=== PATIENT | male | born 1960 | race Caucasian/White ===

== ENCOUNTER 2018-10-05 08:33 | Emergency (ER) | payer MEDICARE, MEDICAID ==
[~2018-10-05] VITALS: Ht 177.8 cm; Wt 77.1 kg
[2018-10-05 08:43] VITALS: BP 133/87
[2018-10-05 10:21] LABS: Basophils # (auto) 0.2 uL; Basophils % (auto) 0.7 % (0.0-2.0); Eosinophils # (auto) 0 uL; Hematocrit 46.4 % (41.0-53.0); Hemoglobin 15.1 g/dL (13.5-17.5); Lymphocytes # (auto) 0.5 uL; Lymphocytes % (auto) 2.4 % (10.0-50.0); Mean Corpuscular Hemoglobin 29.6 pg (28.0-32.0); Mean Corpuscular Hgb Conc. 32.6 g/dL (32.0-36.0); Monocytes # (auto) 1.4 uL; Monocytes % (auto) 6.6 % (0.0-12.0); Neutrophils # (auto) 19.7 uL; Neutrophils % (auto) 90.3 % (37.0-80.0); Platelet Count (auto) 333 10^3/uL (140-450); Red Blood Cells 5.09 10^6/uL (4.5-5.90); Red Cell Distribution Width 13.8 % (11.8-14.3); White Blood Cell 21.8 10^3/uL (4.4-10.8)
[2018-10-05 10:46] LABS: Alanine Aminotransferase 29 U/L (16-61); Albumin 3.2 g/dL (3.4-5.0); Anion Gap 21 (5-15); Aspartate Aminotransferase 20 U/L (15-37); BUN/Creatinine Ratio 18.5; Calcium 9.2 mg/dL (8.5-10.1); Carbon Dioxide 13 mmol/L (21-32); Chloride 101 mmol/L (98-107); GFR African American 10 mL/min; GFR Non-African American 8 mL/min; Glucose 153 mg/dL (74-106); Potassium 4.8 mmol/L (3.5-5.1); Sodium 135 mmol/L (136-145)
[2018-10-05 10:51] LABS: Alkaline Phosphatase 84 U/L (45-117); Bilirubin, Total 0.6 mg/dL (0.2-1.0); Total Protein 8.1 g/dL (6.4-8.2)
[2018-10-05 10:58] LABS: Blood Urea Nitrogen 138 mg/dL (7-18)
[2018-10-05] MEDS ORDERED: PIPERACILLIN-TAZOB 3.375GM 100 ML IV ONE (11:45)
== END 2018-10-05 14:41 | disposition left against medical advice (07) ==
LOC: EDBD 08:33 → ER 08:33
DX: A41.9 Sepsis, unspecified organism (principal); F17.210 Nicotine dependence, cigarettes, uncomplicated; F12.10 Cannabis abuse, uncomplicated; F15.10 Other stimulant abuse, uncomplicated
CPT/HCPCS: 36415; 71045; 80053; 83605; 83735; 84484; 85025; 87040

== ENCOUNTER 2018-10-05 20:19 | Emergency (ER) | payer MEDICARE, MEDICAID ==
[~2018-10-05] VITALS: Ht 170.2 cm; Wt 59.0 kg
[2018-10-05 20:42] VITALS: BP 133/70
[2018-10-05 23:25] LABS: Urine Bacteria FEW /hpf (None Seen); Urine Blood 1+ /uL (Negative); Urine Specific Gravity 1.012 (1.001-1.035); Urine WBC 13 /hpf (0 - 3)
== END 2018-10-06 00:14 | disposition left against medical advice (07) ==
LOC: ER 20:19
DX: R30.9 Painful micturition, unspecified (principal); Z53.21 Procedure and treatment not carried out due to patient leaving prior to being seen by health care provider
CPT/HCPCS: 74176; 81001

== ENCOUNTER 2018-10-06 08:28 | Inpatient (IN) | payer MEDICARE, MEDICAID ==
[~2018-10-06] VITALS: Ht 180.3 cm; Wt 95.1 kg
[2018-10-06] MEDS ORDERED: LORazepam 2MG/ML-1ML VIAL ONE (08:53)
[2018-10-06] MEDS ORDERED: MORPHINE SULFATE 4 MG/ML SYR/VIAL ONE (08:53)
[2018-10-06] MEDS ORDERED: MORPHINE SULFATE 4 MG/ML SYR/VIAL IV ONE (09:15)
[2018-10-06] MEDS ORDERED: LORazepam 2MG/ML-1ML VIAL IV ONE (09:15)
[2018-10-06 09:43] LABS: Urine Bacteria NONE SEEN /hpf (None Seen); Urine Blood 1+ /uL (Negative); Urine Specific Gravity 1.011 (1.001-1.035); Urine WBC 6 /hpf (0 - 3)
[2018-10-06 09:53] LABS: Basophils # (auto) 0.3 uL; Basophils % (auto) 1.7 % (0.0-2.0); Eosinophils # (auto) 0 uL; Eosinophils % (auto) 0.1 % (0.0-7.0); Hemoglobin 13.5 g/dL (13.5-17.5); Lymphocytes # (auto) 0.4 uL; Lymphocytes % (auto) 2.3 % (10.0-50.0); Mean Corpuscular Hemoglobin 29.8 pg (28.0-32.0); Mean Corpuscular Volume 90.3 fL (80.0-100.0); Monocytes # (auto) 1.3 uL; Neutrophils # (auto) 13.8 uL; Neutrophils % (auto) 87.9 % (37.0-80.0); Nucleated Red Blood Cells % 0.1 %; Platelet Count (auto) 306 10^3/uL (140-450); Red Blood Cells 4.54 10^6/uL (4.5-5.90); Red Cell Distribution Width 13.7 % (11.8-14.3); White Blood Cell 15.7 10^3/uL (4.4-10.8)
[2018-10-06 09:56] LABS: INR 1.02 (0.9-1.15); Prothrombin Time 10.9 sec (9.27-12.13)
[2018-10-06 09:59] LABS: Alanine Aminotransferase 33 U/L (16-61); Albumin 3.1 g/dL (3.4-5.0); Anion Gap 19 (5-15); Aspartate Aminotransferase 30 U/L (15-37); BUN/Creatinine Ratio 20.7; Calcium 9.2 mg/dL (8.5-10.1); Carbon Dioxide 12 mmol/L (21-32); Chloride 102 mmol/L (98-107); GFR African American 10 mL/min; GFR Non-African American 8 mL/min; Glucose 121 mg/dL (74-106); Potassium 4.3 mmol/L (3.5-5.1); Sodium 133 mmol/L (136-145)
[2018-10-06] MEDS ORDERED: SODIUM CHLORIDE 0.9% 1,000 ML IV SCH (09:59)
[2018-10-06] MEDS ORDERED: ACETAMINOPHEN 500 MG TAB PO PRN (10:00)
[2018-10-06] MEDS ORDERED: NITROGLYCERIN 0.4 MG SL TAB SL PRN (10:00)
[2018-10-06] MEDS ORDERED: MORPHINE SULF INJ 2 MG/ML SYRINGE 1ML IV PRN (10:00)
[2018-10-06 10:03] LABS: Alkaline Phosphatase 76 U/L (45-117); Bilirubin, Total 0.6 mg/dL (0.2-1.0); Total Protein 7.4 g/dL (6.4-8.2)
[2018-10-06 10:05] LABS: Blood Urea Nitrogen 147 mg/dL (7-18)
[2018-10-06] MEDS: DOCUSATE SOD 100 MG CAP PO SCH ×2 (10:22→21:23)
[2018-10-06] MEDS ORDERED: cefTRIAXone 1GM/50ML D5W 50 ML IV ONE (10:30)
[2018-10-06 10:43] LABS: Alcohol, Urine < 3.0 mg/dL (0-5); Amphetamine Screen, Urine POSITIVE (NEGATIVE); Barbiturate Scree,Urine NEGATIVE (NEGATIVE); Benzodiazephine Screen, Urine NEGATIVE (NEGATIVE); Cannabinoid Screen, Urine NEGATIVE (NEGATIVE); Opiate Scree,Urine NEGATIVE (NEGATIVE); Phencyclidine Screen, Urine NEGATIVE (NEGATIVE)
[2018-10-06 10:48] LABS: Sodium Urine 38 mmol/L (40-220)
[2018-10-06 10:51] LABS: Cocaine Screen, Urine NEGATIVE (NEGATIVE)
[2018-10-06 10:53] LABS: Creatinine, Urine 91 mg/dL (30.0-125.0)
[2018-10-06] MEDS ORDERED: SODIUM BICARBONATE 8.4 % INJ 50ML VIAL IV ONE (11:30)
[2018-10-06] MEDS: PANTOPRAZOLE 40 MG/10 ML VIAL IV SCH (13:05)
[2018-10-06] MEDS: SODIUM BICARBONATE 50ML VIAL 50 ML in D5W/SOD CHL 0.45% 1,000 ML IV SCH ×3 (13:05→21:02)
[2018-10-06] MEDS: MULTIPLE VITAMIN 10 ML, MAGNESIUM SULF SDV 50% 8 MEQ in D5W/SOD CHL 0.45% 1,000 ML IV SCH (15:25)
[2018-10-06 17:47] VITALS: BP 138/66
[2018-10-06] MEDS: TAMSULOSIN HYDROCHLORIDE 0.4 MG CAP PO SCH (18:00)
[2018-10-06 21:30] VITALS: BP 133/78
[2018-10-06] MEDS: MORPHINE SULF INJ 2 MG/ML SYRINGE 1ML IV PRN (22:34)
[2018-10-06] MEDS: ONDANSETRON HCL 4 MG/2 ML VIAL IV PRN (22:34)
--- NOTE | 2018-10-06 22:35 | NUR ---
PATIENT COMPLAINT OF ABDOMINAL PAIN, MEDICATED WITH MORPHINE AND ZOFRAN PER MD ORDER. TOLERATED WELL. CONTINUE PATIENT CARE. KEPT BED ALARM ON.
[2018-10-07 04:30] VITALS: BP 117/51
--- NOTE | 2018-10-07 04:31 | NUR ---
RESTING ON BED AT THIS TIME WITH NO RESPIRATORY DISTRESS NOTED. KEPT BED ALARM ON.
[2018-10-07 05:54] LABS: Basophils # (auto) 0.1 uL; Basophils % (auto) 1.3 % (0.0-2.0); Eosinophils # (auto) 0 uL; Eosinophils % (auto) 0.3 % (0.0-7.0); Hematocrit 37.9 % (41.0-53.0); Lymphocytes # (auto) 0.4 uL; Mean Corpuscular Hemoglobin 30.7 pg (28.0-32.0); Mean Corpuscular Hgb Conc. 34.4 g/dL (32.0-36.0); Mean Corpuscular Volume 89.4 fL (80.0-100.0); Monocytes # (auto) 1.2 uL; Monocytes % (auto) 15.2 % (0.0-12.0); Neutrophils # (auto) 6.1 uL; Neutrophils % (auto) 78.2 % (37.0-80.0); Nucleated Red Blood Cells % 0.1 %; Platelet Count (auto) 260 10^3/uL (140-450); Red Blood Cells 4.24 10^6/uL (4.5-5.90); Red Cell Distribution Width 13.4 % (11.8-14.3); White Blood Cell 7.7 10^3/uL (4.4-10.8)
[2018-10-07 06:11] LABS: Calcium 8.5 mg/dL (8.5-10.1)
[2018-10-07 06:14] LABS: BUN/Creatinine Ratio 29.5
[2018-10-07] MEDS: ONDANSETRON HCL 4 MG/2 ML VIAL IV PRN (06:47)
[2018-10-07] MEDS: MORPHINE SULF INJ 2 MG/ML SYRINGE 1ML IV PRN ×2 (06:47→13:40)
[2018-10-07] MEDS: SODIUM BICARBONATE 50ML VIAL 50 ML in D5W/SOD CHL 0.45% 1,000 ML IV SCH (06:57)
[2018-10-07 08:00] VITALS: BP 112/66
[2018-10-07] MEDS ORDERED: SOD CHL 0.45% 1,000 ML IV SCH ×2 (08:45→22:00)
[2018-10-07] MEDS: HYDROcodone-ACET 5/325MG TAB PO PRN (08:56)
[2018-10-07] MEDS ORDERED: D5W 5% 1,000 ML IV SCH (10:30)
[2018-10-07] MEDS: cefTRIAXone 1GM/50ML D5W 50 ML IV SCH (10:44)
[2018-10-07] MEDS: PANTOPRAZOLE 40 MG/10 ML VIAL IV SCH (10:45)
[2018-10-07] MEDS: DOCUSATE SOD 100 MG CAP PO SCH ×2 (10:45→21:22)
[2018-10-07 12:55] VITALS: BP 115/68
--- NOTE | 2018-10-07 13:40 | NUR ---
PATIENT ASKED FOR PAIN MEDICATION. I INFORMED HIM THAT THE NORCO WAS NOT DUE BUT I COULD GIVE HIM MORPHINE HE SAID "I'M GOING TO SOCK YOU JUST GIVE ME THE MORPHINE". I MEDICATED HIM WITH MORPHINE ORDERED. I INFORMED PRIYANKA THE CHARGE NURSE THAT PATIENT IS HAVING AGGRESSIVE BEHAVIOR TOWARDS ME.
[2018-10-07] MEDS: ENSURE CLEAR Mixed Berry 8oz Carton PO SCH ×2 (13:46→18:04)
[2018-10-07] MEDS: MULTIPLE VITAMIN 10 ML, MAGNESIUM SULF SDV 50% 8 MEQ in D5W/SOD CHL 0.45% 1,000 ML IV SCH (14:59)
[2018-10-07 16:02] LABS: BUN/Creatinine Ratio 23.1; Calcium 7.4 mg/dL (8.5-10.1); Potassium 3.3 mmol/L (3.5-5.1)
[2018-10-07 16:29] VITALS: BP 100/62
[2018-10-07] MEDS: TAMSULOSIN HYDROCHLORIDE 0.4 MG CAP PO SCH (19:20)
--- NOTE | 2018-10-07 19:30 | NUR ---
Opening Shift Note Assumed care of patient, awake and alert. No S/S of distress/SOB. Instructed on POC and to call for assist PRN, will continue to monitor for changes Q1hr and PRN.
[2018-10-07 22:00] VITALS: BP 116/65
[2018-10-08] MEDS: POTASSIUM CHL 20MEQ/100ML 100 ML IV SCH ×2 (01:41)
[2018-10-08] MEDS ORDERED: POTASSIUM CHL 20MEQ/100ML 100 ML IV ONE (04:11)
[2018-10-08 05:00] VITALS: BP 111/56
[2018-10-08] MEDS: HYDROcodone-ACET 5/325MG TAB PO PRN (05:14)
[2018-10-08] MEDS: ENSURE CLEAR Mixed Berry 8oz Carton PO SCH ×3 (07:31→17:31)
[2018-10-08 08:00] VITALS: BP 112/69
[2018-10-08] MEDS: MORPHINE SULF INJ 2 MG/ML SYRINGE 1ML IV PRN (08:41)
[2018-10-08] MEDS ORDERED: LORazepam 2MG/ML-1ML VIAL IV PRN (09:30)
[2018-10-08] MEDS: PANTOPRAZOLE 40 MG/10 ML VIAL IV SCH (09:36)
[2018-10-08] MEDS: cefTRIAXone 1GM/50ML D5W 50 ML IV SCH (09:36)
[2018-10-08] MEDS: DOCUSATE SOD 100 MG CAP PO SCH ×2 (09:36→21:47)
--- NOTE | 2018-10-08 11:29 | NUR ---
CONTINUES TO REFUSE BLOOD DRAWS. WILL NOTIFY NICK
--- NOTE | 2018-10-08 12:32 | NUR ---
REFUSED MIDLINE. EDUCATED ON THE IMPORTANCE OF BETTER IV ACCESS CONTINUES TO REFUSE. I OFFERED ATIVAN TO RELAX PATIENT BEFORE MIDLINE PLACEMENT NOLAN CONTINUES TO REFUSE
--- NOTE | 2018-10-08 12:34 | NUR ---
PATIENT REFUSED MIDLINE AND PICC LINE QUE SYED VERBALLY TOLD.
[2018-10-08 13:26] VITALS: BP 109/68
[2018-10-08] MEDS: MULTIPLE VITAMIN 10 ML, MAGNESIUM SULF SDV 50% 8 MEQ in D5W/SOD CHL 0.45% 1,000 ML IV SCH (15:57)
[2018-10-08 17:25] VITALS: BP 111/63
[2018-10-08] MEDS: TAMSULOSIN HYDROCHLORIDE 0.4 MG CAP PO SCH (17:35)
--- NOTE | 2018-10-08 19:30 | NUR ---
Continuation of Care Assumed care of patient, eyes closed, respirations even and unlabored, appears asleep. Patient awakens to name and touch. No S/S of distress/SOB or pain. Bed in lowest locked position, side rails up x2, call light within reach, bed alarm on. Instructed on POC and to call for assist PRN, will continue to monitor for changes Q1hr and PRN. Addendum: 10/09/18 at 0042 by SONDRA PARR RN RN CORRECTION: Time of note should be 21:30, not 19:30. All other details correct.
--- NOTE | 2018-10-08 19:30 | NUR ---
Opening Shift Note Assumed care of patient, awake and alert. No S/S of distress/SOB or pain. Instructed on POC and to call for assist PRN, will continue to monitor for changes Q1hr and PRN.
--- NOTE | 2018-10-08 19:50 | NUR ---
Attempted to educate patient regarding Midline and labs, but patient refused and stated that he prefers to just leave. Patient states he has a fear of needles.
--- NOTE | 2018-10-08 21:10 | NUR ---
Patient complaining of severe constipation. Patient assisted onto commode and patient able to have a large BM. Patient able to stand with only standby assistance.
[2018-10-08] MEDS ORDERED: MVI IN SODIUM CHLORIDE 0.9% ONE (21:15)
--- NOTE | 2018-10-08 21:29 | NUR ---
Endorsed patient to Page RN. Patient resting on bed and no distress noted.
[2018-10-08 22:00] VITALS: BP 122/69
[2018-10-09 05:00] VITALS: BP 120/73
--- NOTE | 2018-10-09 07:05 | NUR ---
AMA Note NELY MOTA states they want to leave the hospital Against Medical Advice (AMA). Patient encouraged to stay for further treatment/stabilization. Morena Person NP notified of patient's wishes. Patient advised of the risks and benefits of leaving AMA. Patient verbalized understanding. Patient encouraged to return to the ER if symptoms do not improve or worsen. Patient approached by lab staff for morning lab draw, patient refused. This RN spoke with patient and educated him on importance of lab draws, patient verbalized understanding and refused stating, "I want my clothes and I want to leave." RN informed patient that she would need to inform charge nurse of patient's request and that she would need to locate the paperwork. Patient verbalized understanding. While printing paperwork and contacting charge nurse Kandis GREY, patient became more agitated stating he would "punch [this RN] in [my] fucking face," and "[this RN] could burn in fucking hell". Left EJ removed, pressure held to site and Tegaderm and gauze applied. Patient instructed to leave on and monitor site for bleeding, patient verbalized understanding. Koenig catheter removed with 300 ml of clear yellow urine. Patient grimacing in pain after 10 ml balloon deflated and Koenig removed, but no other s/s of distress noted. All belongings returned. Patient ambulated off of unit, leaving AMA, escorted by security. Morena Person NP notified at 07:25 am.
== END 2018-10-09 07:05 | disposition left against medical advice (07) | DRG 871 ==
LOC: ER 08:28 → TELE 09:59 → TELE-CENTR 18:22 → CENTRAL 10-08 10:21
PROVIDERS: ADMIT Nurse Practitioner Acute Care; ATTEND Nurse Practitioner Acute Care
DX: A41.9 Sepsis, unspecified organism (principal); N17.0 Acute kidney failure with tubular necrosis; E87.1 Hypo-osmolality and hyponatremia; E87.0 Hyperosmolality and hypernatremia; E87.2 Acidosis; J98.11 Atelectasis; N13.6 Pyonephrosis; E44.0 Moderate protein-calorie malnutrition; E87.6 Hypokalemia; F15.10 Other stimulant abuse, uncomplicated; N40.1 Benign prostatic hyperplasia with lower urinary tract symptoms; R33.9 Retention of urine, unspecified; F17.210 Nicotine dependence, cigarettes, uncomplicated; F41.9 Anxiety disorder, unspecified; Z53.21 Procedure and treatment not carried out due to patient leaving prior to being seen by health care provider; K57.30 Diverticulosis of large intestine without perforation or abscess without bleeding; M81.0 Age-related osteoporosis without current pathological fracture; Z68.29 Body mass index [BMI] 29.0-29.9, adult; Z59.0 Homelessness; Z90.79 Acquired absence of other genital organ(s); Z79.899 Other long term (current) drug therapy; Z72.89 Other problems related to lifestyle
CPT/HCPCS: 36415; 71045; 74176; 76775; 80048; 80053; 80307; 81001; 82570; 83605; 83735; 83880; 84154; 84300; 84484; 85025; 85610; 85730; 87040; 87086; 93306; 96365; 96375; A6257; C9113; G0378; J0696; J2405; J3480

== ENCOUNTER 2018-10-12 01:57 | Emergency (ER) | payer MEDICARE, MEDICAID ==
[~2018-10-12] VITALS: Ht 180.3 cm; Wt 62.6 kg
[2018-10-12 02:07] VITALS: BP 166/91
== END 2018-10-12 06:04 | disposition left against medical advice (07) ==
LOC: EDBD 01:57 → ER 02:02
DX: R10.9 Unspecified abdominal pain (principal); Z53.21 Procedure and treatment not carried out due to patient leaving prior to being seen by health care provider

== ENCOUNTER 2018-10-14 22:19 | Emergency (ER) | payer MEDICARE, MEDICAID ==
[~2018-10-14] VITALS: Ht 180.3 cm; Wt 63.5 kg
[2018-10-14 22:32] VITALS: BP 124/91
== END 2018-10-15 02:10 | disposition left against medical advice (07) ==
LOC: ER 22:19
DX: R10.9 Unspecified abdominal pain (principal); Z53.21 Procedure and treatment not carried out due to patient leaving prior to being seen by health care provider

== ENCOUNTER 2018-10-15 02:32 | Emergency (ER) | payer MEDICARE, MEDICAID ==
[~2018-10-15] VITALS: Ht 160 cm; Wt 83.9 kg
[2018-10-15 07:38] LABS: Basophils # (auto) 0.1 uL; Basophils % (auto) 0.6 % (0.0-2.0); Eosinophils # (auto) 0.1 uL; Eosinophils % (auto) 1.2 % (0.0-7.0); Hematocrit 34.5 % (41.0-53.0); Hemoglobin 11.5 g/dL (13.5-17.5); Lymphocytes # (auto) 0.8 uL; Lymphocytes % (auto) 7.2 % (10.0-50.0); Mean Corpuscular Hemoglobin 30.1 pg (28.0-32.0); Mean Corpuscular Hgb Conc. 33.3 g/dL (32.0-36.0); Mean Corpuscular Volume 90.3 fL (80.0-100.0); Monocytes # (auto) 1.2 uL; Monocytes % (auto) 10.5 % (0.0-12.0); Neutrophils # (auto) 9.3 uL; Neutrophils % (auto) 80.5 % (37.0-80.0); Nucleated Red Blood Cells % 0.1 %; Platelet Count (auto) 337 10^3/uL (140-450); Red Blood Cells 3.82 10^6/uL (4.5-5.90); Red Cell Distribution Width 13.6 % (11.8-14.3); White Blood Cell 11.6 10^3/uL (4.4-10.8)
[2018-10-15 07:53] LABS: Albumin 2.8 g/dL (3.4-5.0); Calcium 8.9 mg/dL (8.5-10.1); Potassium 3.4 mmol/L (3.5-5.1)
[2018-10-15 07:56] LABS: BUN/Creatinine Ratio 14.6
[2018-10-15 07:59] LABS: Bilirubin, Total 0.6 mg/dL (0.2-1.0); Total Protein 6.9 g/dL (6.4-8.2)
[2018-10-15 08:10] VITALS: BP 117/69
== END 2018-10-15 08:47 | disposition home or self-care (01) ==
LOC: EDBD 02:32 → ER 02:32
DX: R10.84 Generalized abdominal pain (principal); G89.29 Other chronic pain; F17.210 Nicotine dependence, cigarettes, uncomplicated; F12.90 Cannabis use, unspecified, uncomplicated; F15.90 Other stimulant use, unspecified, uncomplicated; Z59.0 Homelessness
CPT/HCPCS: 36415; 80053; 82150; 83690; 85025; 93005

== ENCOUNTER 2018-10-19 14:44 | Emergency (ER) | payer MEDICARE, MEDICAID ==
[~2018-10-19] VITALS: Ht 180.3 cm; Wt 63.5 kg
[2018-10-19 15:02] VITALS: BP 103/44
[2018-10-19 18:06] LABS: Urine Bacteria NONE SEEN /hpf (None Seen); Urine Blood 2+ /uL (Negative); Urine Mucus FEW (None Seen); Urine WBC 8 /hpf (0 - 3)
== END 2018-10-20 01:39 | disposition left against medical advice (07) ==
LOC: ER 14:44 → EDBD 14:44 → ER 10-20 01:39
DX: N48.89 Other specified disorders of penis (principal); Z53.21 Procedure and treatment not carried out due to patient leaving prior to being seen by health care provider
CPT/HCPCS: 81001

== ENCOUNTER 2018-10-20 07:25 | Emergency (ER) | payer MEDICARE, MEDICAID ==
[~2018-10-20] VITALS: Ht 180.3 cm; Wt 63.5 kg
[2018-10-20] MEDS ORDERED: methylPREDNISolone SOD SUCC 125 MG/2 ML VL ONE (08:01)
[2018-10-20 08:55] VITALS: BP 136/83
== END 2018-10-20 08:55 | disposition home or self-care (01) ==
LOC: ER 07:25
DX: R10.30 Lower abdominal pain, unspecified (principal); Z46.6 Encounter for fitting and adjustment of urinary device; F17.210 Nicotine dependence, cigarettes, uncomplicated; F12.10 Cannabis abuse, uncomplicated; F15.10 Other stimulant abuse, uncomplicated; Z59.0 Homelessness
CPT/HCPCS: 81001; 93005; 99284; J2930

== ENCOUNTER 2018-10-21 19:30 | Emergency (ER) | payer MEDICARE, MEDICAID ==
[~2018-10-21] VITALS: Ht 180.3 cm; Wt 63.5 kg
[2018-10-21 19:50] VITALS: BP 118/77
[2018-10-21] MEDS ORDERED: cefTRIAXone SOD 1,000 MG VL IM ONE (21:00)
[2018-10-21] MEDS ORDERED: PHENAZOPYRIDINE HCL 100 MG TAB PO ONE (21:00)
[2018-10-21] MEDS ORDERED: HYDROcodone-ACET 10/325MG TAB PO ONE (22:30)
== END 2018-10-21 22:27 | disposition home or self-care (01) ==
LOC: ER 19:33
DX: T83.9XXA Unspecified complication of genitourinary prosthetic device, implant and graft, initial encounter (principal); F17.210 Nicotine dependence, cigarettes, uncomplicated; F12.10 Cannabis abuse, uncomplicated; F15.10 Other stimulant abuse, uncomplicated; Z59.0 Homelessness; Y92.89 Other specified places as the place of occurrence of the external cause
CPT/HCPCS: 51702; 96372; 99284; J0696

== ENCOUNTER 2018-11-01 15:47 | Emergency (ER) | payer MEDICARE, MEDICAID ==
[~2018-11-01] VITALS: Ht 180.3 cm; Wt 63.5 kg
[2018-11-01 16:41] VITALS: BP 112/71
== END 2018-11-01 17:11 | disposition home or self-care (01) ==
LOC: ER 15:47
DX: Z46.6 Encounter for fitting and adjustment of urinary device (principal); F17.210 Nicotine dependence, cigarettes, uncomplicated; F12.90 Cannabis use, unspecified, uncomplicated; F15.90 Other stimulant use, unspecified, uncomplicated; Z86.73 Personal history of transient ischemic attack (TIA), and cerebral infarction without residual deficits; Z59.0 Homelessness

== ENCOUNTER 2018-11-19 14:17 | Emergency (ER) | payer MEDICARE, MEDICAID ==
[~2018-11-19] VITALS: Ht 175.3 cm; Wt 61.2 kg
[2018-11-19 14:24] VITALS: BP 160/100
== END 2018-11-19 19:24 | disposition left against medical advice (07) ==
LOC: EDBD 14:17 → ER 14:22
DX: R10.30 Lower abdominal pain, unspecified (principal); Z53.21 Procedure and treatment not carried out due to patient leaving prior to being seen by health care provider

== ENCOUNTER 2018-11-19 22:15 | Emergency (ER) | payer MEDICARE, MEDICAID ==
[~2018-11-19] VITALS: Ht 177.8 cm; Wt 63.5 kg
[2018-11-19 22:50] VITALS: BP 156/64
[2018-11-19 23:18] LABS: Basophils # (auto) 0.1 uL; Basophils % (auto) 0.4 % (0.0-2.0); Eosinophils # (auto) 0 uL; Hemoglobin 14.5 g/dL (13.5-17.5); Lymphocytes # (auto) 0.3 uL; Lymphocytes % (auto) 1.3 % (10.0-50.0); Mean Corpuscular Hemoglobin 30.3 pg (28.0-32.0); Mean Corpuscular Hgb Conc. 33.1 g/dL (32.0-36.0); Mean Corpuscular Volume 91.5 fL (80.0-100.0); Monocytes # (auto) 1.3 uL; Monocytes % (auto) 6.8 % (0.0-12.0); Neutrophils # (auto) 17.7 uL; Neutrophils % (auto) 91.5 % (37.0-80.0); Platelet Count (auto) 194 10^3/uL (140-450); Red Blood Cells 4.81 10^6/uL (4.5-5.90); Red Cell Distribution Width 14.2 % (11.8-14.3); White Blood Cell 19.3 10^3/uL (4.4-10.8)
[2018-11-19 23:41] LABS: Albumin 3.7 g/dL (3.4-5.0); BUN/Creatinine Ratio 14.8; Calcium 9.7 mg/dL (8.5-10.1); Potassium 4.4 mmol/L (3.5-5.1)
[2018-11-19 23:44] LABS: Bilirubin, Total 0.8 mg/dL (0.2-1.0)
[2018-11-20] MEDS ORDERED: cefTRIAXone SOD 1,000 MG VL IM ONE (06:00)
== END 2018-11-20 05:05 | disposition home or self-care (01) ==
LOC: EDBD 22:15 → ER 22:19
DX: N39.0 Urinary tract infection, site not specified (principal); F19.10 Other psychoactive substance abuse, uncomplicated; F17.210 Nicotine dependence, cigarettes, uncomplicated; Z86.73 Personal history of transient ischemic attack (TIA), and cerebral infarction without residual deficits
CPT/HCPCS: 36415; 80053; 85025

== ENCOUNTER 2018-11-20 17:16 | Inpatient (IN) | payer MEDICARE, MEDICAID | END 2018-11-24 17:00 | LOC: OVERFLOW 11-21 07:33 → WEST WING 11-21 12:56 → ER 17:16 | DX: A41.9 Sepsis, unspecified organism (principal); N17.0 Acute kidney failure with tubular necrosis; N13.6 Pyonephrosis; N18.9 Chronic kidney disease, unspecified; E87.5 Hyperkalemia ==

== ENCOUNTER 2019-02-14 10:50 | Emergency (ER) | payer MEDICARE, MEDICAID ==
[~2019-02-14] VITALS: Ht 172.7 cm; Wt 54.4 kg
[2019-02-14 11:14] VITALS: BP 166/60
== END 2019-02-14 14:32 | disposition left against medical advice (07) ==
LOC: EDBD 10:50 → ER 11:01
DX: R33.8 Other retention of urine (principal); Z53.21 Procedure and treatment not carried out due to patient leaving prior to being seen by health care provider

== ENCOUNTER 2021-11-28 13:38 | Emergency (ER) | payer MEDICARE, MEDICAID ==
[~2021-11-28] VITALS: Ht 180.3 cm; Wt 59.0 kg
[2021-11-28] MEDS ORDERED: levETIRAcetam 500 MG TAB PO ONE (14:30)
[2021-11-28 15:04] LABS: Alcohol, Urine < 3.0 mg/dL (0-10); Amphetamine Screen, Urine NEGATIVE (NEGATIVE); Barbiturate Scree,Urine NEGATIVE (NEGATIVE); Benzodiazephine Screen, Urine NEGATIVE (NEGATIVE); Cannabinoid Screen, Urine POSITIVE (NEGATIVE); Cocaine Screen, Urine NEGATIVE (NEGATIVE); Opiate Scree,Urine NEGATIVE (NEGATIVE); Phencyclidine Screen, Urine NEGATIVE (NEGATIVE)
[2021-11-28 15:13] LABS: Basophils # (auto) 0.2 10 ^3/uL (0-0.2); Basophils % (auto) 2.3 % (0.0-2.0); Eosinophils # (auto) 0.1 10 ^3/uL (0-0.8); Eosinophils % (auto) 1.8 % (0.0-7.0); Hematocrit 44.9 % (41.0-53.0); Hemoglobin 15.6 g/dL (13.5-17.5); Lymphocytes # (auto) 1.2 10 ^3/uL (0.4-5.4); Lymphocytes % (auto) 16.7 % (10.0-50.0); Mean Corpuscular Hemoglobin 32.7 pg (28.0-32.0); Mean Corpuscular Hgb Conc. 34.8 g/dL (32.0-36.0); Mean Corpuscular Volume 93.8 fL (80.0-100.0); Monocytes # (auto) 0.6 10 ^3/uL (0-1.3); Monocytes % (auto) 7.7 % (0.0-12.0); Neutrophils # (auto) 5.3 10 ^3/uL (1.6-8.6); Neutrophils % (auto) 71.5 % (37.0-80.0); Red Blood Cells 4.78 10^6/uL (4.5-5.90); Red Cell Distribution Width 13.3 % (11.8-14.3); White Blood Cell 7.4 10^3/uL (4.4-10.8)
[2021-11-28 15:32] LABS: Albumin 3.2 g/dL (3.4-5.0); BUN/Creatinine Ratio 16.7; Calcium 8.7 mg/dL (8.5-10.1); Magnesium 2.2 mg/dL (1.6-2.6); Potassium 4.3 mmol/L (3.5-5.1)
[2021-11-28 15:36] LABS: Bilirubin, Total 0.3 mg/dL (0.2-1.0)
[2021-11-28 17:26] VITALS: BP 128/63
== END 2021-11-28 18:26 | disposition home or self-care (01) ==
LOC: EDBD 13:38 → ER 13:38
DX: R56.9 Unspecified convulsions (principal); F17.210 Nicotine dependence, cigarettes, uncomplicated; F12.10 Cannabis abuse, uncomplicated; F15.10 Other stimulant abuse, uncomplicated; I10 Essential (primary) hypertension; Z86.73 Personal history of transient ischemic attack (TIA), and cerebral infarction without residual deficits; Z59.00 Homelessness unspecified
CPT/HCPCS: 36415; 80053; 80307; 83735; 84484; 85025; 93005

== ENCOUNTER → 2022-07-24 | Emergency (ER) | payer MEDICARE, MEDICAID ==
[~2022-07-24] VITALS: Ht 180.3 cm; Wt 60.0 kg
[~2022-07-24] MED LIST: IBUP800T27 PO
[2022-07-24 18:10] VITALS: BP 103/57
== END | disposition home or self-care (01) ==
LOC: EDUNIT# 13:53 → ER 13:54 → EDBD 13:54
DX: F15.20 Other stimulant dependence, uncomplicated (principal); F19.20 Other psychoactive substance dependence, uncomplicated; F17.210 Nicotine dependence, cigarettes, uncomplicated; F12.10 Cannabis abuse, uncomplicated; I10 Essential (primary) hypertension; Z59.00 Homelessness unspecified; Z86.73 Personal history of transient ischemic attack (TIA), and cerebral infarction without residual deficits

== ENCOUNTER 2022-07-25 09:02 | Emergency (ER) | payer MEDICARE, MEDICAID ==
[2022-07-26] MEDS ORDERED: IBUP800T27 PO (21:39)
== END 2022-07-25 09:27 | disposition left against medical advice (07) ==
LOC: ER 09:02
DX: R42 Dizziness and giddiness (principal); Z53.21 Procedure and treatment not carried out due to patient leaving prior to being seen by health care provider

== ENCOUNTER 2022-07-26 16:36 | Emergency (ER) | payer MEDICARE, MEDICAID ==
[~2022-07-26] VITALS: Ht 180.3 cm; Wt 59.0 kg
[2022-07-26] MEDS ORDERED: KETOROLAC TROMETH 60MG/2ML VIAL IM ONE (19:15)
[2022-07-26 19:16] VITALS: BP 150/102
[2022-07-26] MEDS ORDERED: IBUP800T27 PO (21:39)
== END 2022-07-26 22:00 | disposition home or self-care (01) ==
LOC: ER 16:36 → EDBD 16:36 → EDSEX 16:36 → ER 21:53
DX: S39.012A Strain of muscle, fascia and tendon of lower back, initial encounter (principal); S70.02XA Contusion of left hip, initial encounter; F15.10 Other stimulant abuse, uncomplicated; F12.10 Cannabis abuse, uncomplicated; F17.210 Nicotine dependence, cigarettes, uncomplicated; I10 Essential (primary) hypertension; Z86.73 Personal history of transient ischemic attack (TIA), and cerebral infarction without residual deficits; W01.0XXA Fall on same level from slipping, tripping and stumbling without subsequent striking against object, initial encounter; Y93.89 Activity, other specified; Y92.89 Other specified places as the place of occurrence of the external cause; Y99.8 Other external cause status
CPT/HCPCS: 72100; 72170

== ENCOUNTER 2023-03-24 12:45 | Emergency (ER) | payer OTHER, MEDICARE, MEDICAID ==
[~2023-03-24] VITALS: Ht 180.3 cm; Wt 59.0 kg
[~2023-03-24 12:45] MED LIST changes: +IBUP-1456 PO; -IBUP800T27 PO
[2023-03-24 13:10] VITALS: PULSE 71; RESP 20; O2SAT 94
[2023-03-24] MEDS: ASPirin 81 mg TAB PO ONE ×2 (13:41→13:43)
[2023-03-24 14:31] LABS: Basophils # (auto) 0.1 10 ^3/uL (0-0.2); Basophils % (auto) 0.8 % (0.0-2.0); Eosinophils # (auto) 0.1 10 ^3/uL (0-0.8); Eosinophils % (auto) 1.4 % (0.0-7.0); Hematocrit 45.2 % (41.0-53.0); Hemoglobin 15.2 g/dL (13.5-17.5); Lymphocytes # (auto) 1.5 10 ^3/uL (0.4-5.4); Lymphocytes % (auto) 14.2 % (10.0-50.0); Mean Corpuscular Hemoglobin 31.7 pg (28.0-32.0); Mean Corpuscular Hgb Conc. 33.6 g/dL (32.0-36.0); Mean Corpuscular Volume 94.3 fL (80.0-100.0); Monocytes # (auto) 0.9 10 ^3/uL (0-1.3); Neutrophils # (auto) 7.8 10 ^3/uL (1.6-8.6); Neutrophils % (auto) 74.6 % (37.0-80.0); Nucleated Red Blood Cells % 0.1 %; Red Blood Cells 4.79 10^6/uL (4.5-5.90); Red Cell Distribution Width 12.9 % (11.8-14.3); White Blood Cell 10.4 10^3/uL (4.4-10.8)
[2023-03-24 14:47] LABS: Partial Thromboplastin Time 30.8 SEC (24.5-34.5); Prothrombin Time 10.5 sec (9.3-11.8)
[2023-03-24 14:54] LABS: Alanine Aminotransferase 25 U/L (7-40); Albumin 3.9 g/dL (3.2-4.8); Alkaline Phosphatase 88 U/L (46-116); Anion Gap 3 (5-15); Aspartate Aminotransferase 13 U/L (13-40); BUN/Creatinine Ratio 19.1 (10.0-20.0); Bilirubin, Total 0.3 mg/dL (0.2-1.0); Blood Urea Nitrogen 17 mg/dL (9-23); Calcium 9.2 mg/dL (8.7-10.4); Carbon Dioxide 26 mmol/L (20-30); Chloride 110 mmol/L (98-107); Glucose 108 mg/dL (74-106); Magnesium 2.3 mg/dL (1.6-2.6); Potassium 4.4 mmol/L (3.5-5.1); Sodium 139 mmol/L (136-145); Total Protein 6.3 g/dL (5.7-8.2)
[2023-03-24] MEDS ORDERED: HYDROcodone-ACET 10/325MG TAB PO ONE (16:15)
[2023-03-24 18:42] VITALS: BP 135/41; PULSE 71; RESP 15; O2SAT 94
== END 2023-03-24 18:55 | disposition home or self-care (01) ==
LOC: EDBD 12:45 → ER 12:45
DX: R07.89 Other chest pain (principal); R55 Syncope and collapse; R53.1 Weakness; I10 Essential (primary) hypertension; Z86.73 Personal history of transient ischemic attack (TIA), and cerebral infarction without residual deficits; F17.210 Nicotine dependence, cigarettes, uncomplicated; Z79.1 Long term (current) use of non-steroidal anti-inflammatories (NSAID)
CPT/HCPCS: 36415; 70450; 71045; 80053; 83735; 83880; 84484; 85025; 85610; 85730; 93005

== ENCOUNTER → 2024-01-02 | Outpatient (CLI) | payer MEDICARE, MEDICAID ==
[2024-01-02 09:16] LABS: Basophils # (auto) 0.1 10 ^3/uL (0-0.2); Basophils % (auto) 0.8 % (0.0-2.0); Eosinophils # (auto) 0.3 10 ^3/uL (0-0.8); Eosinophils % (auto) 3.3 % (0.0-7.0); Hematocrit 43.6 % (41.0-53.0); Hemoglobin 14.9 g/dL (13.5-17.5); Lymphocytes # (auto) 1.4 10 ^3/uL (0.4-5.4); Lymphocytes % (auto) 14.9 % (10.0-50.0); Mean Corpuscular Hemoglobin 32.2 pg (28.0-32.0); Mean Corpuscular Hgb Conc. 34.2 g/dL (32.0-36.0); Mean Corpuscular Volume 94.2 fL (80.0-100.0); Monocytes # (auto) 0.7 10 ^3/uL (0-1.3); Monocytes % (auto) 7.4 % (0.0-12.0); Neutrophils # (auto) 7.1 10 ^3/uL (1.6-8.6); Neutrophils % (auto) 73.6 % (37.0-80.0); Nucleated Red Blood Cells % 0.1 %; Red Blood Cells 4.63 10^6/uL (4.5-5.90); Red Cell Distribution Width 12.6 % (11.8-14.3); White Blood Cell 9.7 10^3/uL (4.4-10.8)
[2024-01-02 10:34] LABS: Alanine Aminotransferase 18 U/L (7-40); Alkaline Phosphatase 77 U/L (46-116); Anion Gap 6 (5-15); Aspartate Aminotransferase 10 U/L (13-40); Calcium 9.3 mg/dL (8.5-10.1); Carbon Dioxide 23 mmol/L (20-30); Chloride 112 mmol/L (98-107); Potassium 4.2 mmol/L (3.5-5.1); Sodium 141 mmol/L (136-145)
[2024-01-02 10:37] LABS: BUN/Creatinine Ratio 19.1 (10.0-20.0); Blood Urea Nitrogen 17 mg/dL (9-23); Glucose 95 mg/dL (74-106); Triglycerides 93 mg/dL (< 150)
[2024-01-02 10:38] LABS: LDL Cholesterol 75 mg/dL (< 100)
[2024-01-02 10:39] LABS: Albumin 4.2 g/dL (3.2-4.8); Cholesterol 123 mg/dL (< 200); HDL Cholesterol 37 mg/dL (40-59)
[2024-01-02 10:40] LABS: Bilirubin, Total 0.4 mg/dL (0.2-1.0); Total Protein 6.8 g/dL (5.7-8.2)
[2024-01-02 16:41] LABS: Folate (Folic Acid) 36.91 ng/mL (>5.38)
[2024-01-03 08:06] LABS: Lithium (Eskalith) <0.1 mmol/L (0.5-1.2); T3 Uptake 28 % (24-39)
== END | disposition home or self-care (01) ==
LOC: LAB 08:44
DX: F33.2 Major depressive disorder, recurrent severe without psychotic features (principal); I10 Essential (primary) hypertension; R45.1 Restlessness and agitation; T14.91XD Suicide attempt, subsequent encounter; Z72.821 Inadequate sleep hygiene; Z79.899 Other long term (current) drug therapy; X58.XXXD Exposure to other specified factors, subsequent encounter
CPT/HCPCS: 36415; 80053; 80061; 80178; 82607; 82746; 83036; 84443; 85025

== ENCOUNTER 2025-04-28 18:15 | Emergency (ER) | payer MEDICARE, MEDICAID ==
[~2025-04-28] VITALS: Ht 180.3 cm; Wt 63.0 kg
[2025-04-28 20:00] LABS: Hematocrit 38.5 % (41.0-53.0); Hemoglobin 12.9 g/dL (13.5-17.5); Mean Corpuscular Hemoglobin 31.4 pg (28.0-32.0); Mean Corpuscular Volume 93.4 fL (80.0-100.0); Nucleated Red Blood Cells % 0.1 %
--- NOTE | 2025-04-28 20:08 | DVH ---
Exam: CT CT AB PEL WO CON-NO ORAL OR IV History: hematuria Comparison Study: None TECHNIQUE: Multidetector CT of the abdomen AND PELVIS without IV contrast. Axial, coronal and sagitta l multiplanar reformats were obtained from the axial data set by the technologist. Radiation Dose Information: CT Dose: CTDI volume is 9.41 mGy. Dose-length product is 3.92 mGy*cm FINDINGS: Bibasilar atelectasis/scarring. Mild emphysematous changes of the lung bases. Heart size is within no rmal limits. Liver, spleen, pancreas and left adrenal gland are unremarkable. 2 cm right adrenal nodule measuring up to 1 Hounsfield units which may represent an adenoma. 1.4 cm left renal lower pole cyst. Mild right-sided pelviectasis. Otherwise subacute ureters unremar kable. Mild wall thickening of the urinary bladder which is most likely from inadequate distention. P rostate measures 3.5 x 4.5 x 3.2 cm Stomach is fluid-filled and mildly distended. Mild distention of the proximal duodenum. The remainde r of the small bowel loops unremarkable. Appendix is unremarkable. Descending colon and Sigmoid diver ticulosis without diverticulitis. Small to moderate amount of fecal material within the colon. No evidence of intraperitoneal free air or free fluid. No evidence of aortic aneurysm. Moderate atherosclerotic calcification of the aorta and bilateral gianfranco acs. No significant lymphadenopathy. Tiny fat containing umbilical hernia. Minimal body wall edema. Multilevel mild loss of superior verte bral body height of the thoracic and lumbar spine of unknown chronicity. Old fracture deformity of th e right iliac bone. Old fracture deformity of left posterior 12th and 11th ribs. IMPRESSION: Mild wall thickening of the urinary bladder which may be due to inadequate distention. Correlation w ith urinalysis is recommended to exclude cystitis. Descending colon and Sigmoid diverticulosis without diverticulitis. Fluid-filled mildly distended stomach and proximal duodenum. Additional findings as above.
[2025-04-28 20:17] LABS: Alanine Aminotransferase 17 U/L (7-40); Albumin 3.5 g/dL (3.2-4.8); Alkaline Phosphatase 69 U/L (46-116); Anion Gap 7 (5-15); BUN/Creatinine Ratio 27.6 (10.0-20.0); Calcium 9.4 mg/dL (8.7-10.4); Carbon Dioxide 26 mmol/L (20-31); Potassium 3.9 mmol/L (3.5-5.1); Sodium 143 mmol/L (136-145); Total Protein 5.8 g/dL (5.7-8.2)
[2025-04-28 20:18] LABS: Bilirubin, Total < 0.2 mg/dL (0.2-1.0); Blood Urea Nitrogen 24 mg/dL (9-23); Chloride 110 mmol/L (98-107); Glucose 108 mg/dL (74-106)
--- NOTE | 2025-04-28 20:33 | ED.PDOC ---
General HPI Comments HPI: Poor Historian. 65-year-old male extremely poor historian does not know why he is on any medications or what his medications are. He brought a bag of medicine with him. No blood thinners. Patient presents with a chief complaint of blood in the urine for the last two days. Denies any other associated symptoms. Patient's provide us with a urine sample I looked at the urine cup. Normal color urine. Slightly cloudy. Past Medical History: Hypertension, hyperlipidemia Past Surgical History: Patient is on Seroquel and risperidone finasteride and Flomax REVIEW OF SYSTEMS: CONSTITUTIONAL: Denies acute: fever, diaphoresis, chills, generalized weakness. HEAD: Denies acute: headache, photophobia Eyes: Denies acute: Double vision, vision loss, eye pain, eye discharge. EARS: Denies acute: tinnitus, hearing loss, ear discharge, ear pain, THROAT: Denies acute: sore throat, swelling, difficulty swallowing , pain with swallowing, change in voice. NECK: Denies acute: neck pain, neck swelling, stiff neck. HEART: Denies acute : chest pain, palpitations, LUNGS: Denies acute: SOB, wheezing, cough, hemoptysis ABDOMEN: Denies acute: abdominal pain, Nausea, Vomiting, diarrhea, melena , hematemesis, hematochezia SKIN: Denies acute: rash, redness, lesions, itchiness. EXTREMITIES: Denies acute: calf pain, numbness, tingling, weakness, denies pain in extremity. Denies acute: Low back pain. Neuro: Denies acute: focal neurological deficit, motor or sensory focal neurological deficit, tremors, seizure like activity, confusion, dizziness, change in mental status, loss of bowel or bladder function, cauda equina like symptoms. : Denies acute: dysuria, flank pain, increase in urinary frequency. PSYCH: Denies acute: hallucination, suicidal ideation, homicidal ideation. PHYSICAL EXAM: General: ----mild----acute distress, awake and alert. Head: normocephalic, atraumatic. Neck: supple, trachea is midline, no swelling. Throat: Normal phonation. Eyes:, no erythema, no purulent discharge, no proptosis, no icterus. Heart: regular rate, regular rhythm, no significant murmur appreciated. Lungs: no apparent respiratory distress, Able to speak in full sentences. No wheezing, no rhonchi, no crackles. No stridors Clear to auscultation bilaterally. Abdomen: non tender to palpation, non distended, soft, no guarding, no rebound, + bowel sounds. Neuro: Awake, Alert, oriented to name, self, situation, follows commands GCS=15. Speech is normal. Skin: no petechia, no purpura, no cyanosis, non-pale, not jaundice. Lower extremities: --no - Pitting edema no deformity, no focal swelling, no calf TTP. Makes eye contact. Patient is missing his right eye. Face: no apparent facial droop. ED COURSE: DISCLAIMER: This medical document was created using an electronic medical record system with voice recognition software and computerized dictation system. Although this document has been carefully reviewed, there might still be some phonetic and typographical errors. Occasional wrong-word or "sound-alike" substitutions may have occurred due to the inherent limitations of voice recognition software. These areas are purely typographical due to imperfections of the software programs and do not reflect any compromise in the patient's medical care. Please read the chart carefully and recognize, using context, where these substitutions have occurred. Chief Complaint: Urinary Time Seen by MD: 18:41 Primary Care Provider: NONE Reviewed notes: Allergies Allergies: Coded Allergies: NO KNOWN ALLERGIES (Unverified , 10/21/18) Home Meds Active Scripts Ibuprofen (Ibuprofen) 800 Mg Tab, 1 TAB PO TID PRN, #30 TAB 0 Refills Prov:CAMRON DURAND 07/26/22 Information Source: Patient Mode of Arrival: EMS Past Medical History PAST MEDICAL HISTORY: CVA, HTN, Seizures Surgical History: Tonsillectomy Family History Family History: Family hx of heart edmund Social History Smoker: Cigarettes, Greater Than 1 Pack/Day Alcohol: Denies ETOH Use Drugs: Marijuana Lives In: Home X-Ray, Labs, Meds, VS Vital Signs Date Time Temp Pulse Resp B/P (MAP) Pulse Ox O2 Delivery O2 Flow Rate FiO2 04/28/25 18:26 99.0 66 16 92/60 96 99.0 Lab Test 04/28/25 20:35 04/28/25 19:40 Range/Units Urine Color Light-yellow Yellow Urine Clarity Turbid H Clear Urine pH 6.0 5.0-9.0 Urine Specific [place] 1.014 1.001-1.035 Urine Protein Negative Negative Urine Ketones Negative Negative Urine Blood 2+ H Negative /uL Urine Nitrite 2+ H Negative Urine Bilirubin Negative Negative Urine Urobilinogen Normal Negative mg/dL Urine Leukocyte Esterase 2+ Negative /uL Urine RBC 50 0 - 3 /hpf Urine Microscopic WBC 33 H 0-3 /HPF Urine Squamous Epithelial Cells Few <5 /hpf Urine Bacteria Many H None Seen /hpf Urine Mucus Few None Seen Urine Glucose Normal Normal mg/dL White Blood Count 7.1 4.4-10.8 10^3/uL Red Blood Count 4.12 L 4.5-5.90 10^6/uL Hemoglobin 12.9 L 13.5-17.5 g/dL Hematocrit 38.5 L 41.0-53.0 % Mean Corpuscular Volume 93.4 80.0-100.0 fL Mean Corpuscular Hemoglobin 31.4 28.0-32.0 pg Mean Corpuscular Hemoglobin Concent 33.6 32.0-36.0 g/dL Red Cell Distribution Width 12.2 11.8-14.3 % Platelet Count 201 140-450 10^3/uL Mean Platelet Volume 8.4 6.9-10.8 fL Neutrophils (%) (Auto) 61.5 37.0-80.0 % Lymphocytes (%) (Auto) 26.5 10.0-50.0 % Monocytes (%) (Auto) 9.6 0.0-12.0 % Eosinophils (%) (Auto) 1.8 0.0-7.0 % Basophils (%) (Auto) 0.6 0.0-2.0 % Neutrophils # (Auto) 4.4 1.6-8.6 10 ^3/uL Lymphocytes # (Auto) 1.9 0.4-5.4 10 ^3/uL Monocytes # (Auto) 0.7 0-1.3 10 ^3/uL Eosinophils # (Auto) 0.1 0-0.8 10 ^3/uL Basophils # (Auto) 0 0-0.2 10 ^3/uL Nucleated Red Blood Cells 0.1 % Sodium Level 143 136-145 mmol/L Potassium Level 3.9 3.5-5.1 mmol/L Chloride Level 110 H 98-107 mmol/L Carbon Dioxide Level 26 20-31 mmol/L Anion Gap 7 5-15 Blood Urea Nitrogen 24 H 9-23 mg/dL Creatinine 0.87 0.700-1.30 mg/dL Glomerular Filtration Rate Calc 96 >90 mL/min BUN/Creatinine Ratio 27.6 H 10.0-20.0 Serum Glucose 108 H 74-106 mg/dL Lactic Acid Level 0.8 0.4-2.0 mmol/L Calcium Level 9.4 8.7-10.4 mg/dL Total Bilirubin < 0.2 L 0.2-1.0 mg/dL Aspartate Amino Transferase (AST) 17 13-40 U/L Alanine Aminotransferase (ALT) 17 7-40 U/L Alkaline Phosphatase 69 46-116 U/L Total Protein 5.8 5.7-8.2 g/dL Albumin 3.5 3.2-4.8 g/dL [place] [address] Ph: [phone] DIAGNOSTIC IMAGING Diagnostic Imaging Report : [id number] Signed PATIENT: NELY MOTA ACCT: [id number] UNIT: [id number] : 1960 LOC: ER ROOM / BED: / AGE / SEX: 65 / M ADM STATUS: REG ER SERVICE 09 ORDERING PHYSICIAN: GONZALES GOODWIN DO PROCEDURE(s): ABPL - CT AB PEL WO CON-NO ORAL OR IV REASON: hematuria ORDER NUMBER(s): [id number], ACCESSION NUMBER(s): [id number] Exam: CT CT AB PEL WO CON-NO ORAL OR IV History: hematuria Comparison Study: None TECHNIQUE: Multidetector CT of the abdomen AND PELVIS without IV contrast. Axial, coronal and sagittal multiplanar reformats were obtained from the axial data set by the technologist. Radiation Dose Information: CT Dose: CTDI volume is 9.41 mGy. Dose-length product is 3.92 mGy*cm FINDINGS: Bibasilar atelectasis/scarring. Mild emphysematous changes of the lung bases. Heart size is within normal limits. Liver, spleen, pancreas and left adrenal gland are unremarkable. 2 cm right adrenal nodule measuring up to 1 Hounsfield units which may represent an adenoma. 1.4 cm left renal lower pole cyst. Mild right-sided pelviectasis. Otherwise subacute ureters unremarkable. Mild wall thickening of the urinary bladder which is most likely from inadequate distention. Prostate measures 3.5 x 4.5 x 3.2 cm Stomach is fluid-filled and mildly distended. Mild distention of the proximal duodenum. The remainder of the small bowel loops unremarkable. Appendix is unremarkable. Descending colon and Sigmoid diverticulosis without diverticulitis. Small to moderate amount of fecal material within the colon. No evidence of intraperitoneal free air or free fluid. No evidence of aortic aneurysm. Moderate atherosclerotic calcification of the aorta and bilateral iliacs. No significant lymphadenopathy. Tiny fat containing umbilical hernia. Minimal body wall edema. Multilevel mild loss of superior vertebral body height of the thoracic and lumbar spine of unknown chronicity. Old fracture deformity of the right iliac bone. Old fracture deformity of left posterior 12th and 11th ribs. IMPRESSION: Mild wall thickening of the urinary bladder which may be due to inadequate distention. Correlation with urinalysis is recommended to exclude cystitis. Descending colon and Sigmoid diverticulosis without diverticulitis. Fluid-filled mildly distended stomach and proximal duodenum. Additional findings as above. ATED BY: RAMILA SPAULDING DO DICTATED DATE/TIME: 04/28/252004 SIGNED BY: RAMILA SPAULDING DO SIGNED DATE/TIME: 04/28/252004 CC: Patient Education/Counseling: Diagnosis, Treatment Family Education/Counseling: Other SEPSIS Sepsis Screen Date sepsis recognized/suspect: Apr 28, 2025 Time Sepsis recognized/suspect: 1829 Recent Procedure: No On Antibiotic Therapy: No Respiratory Rate >20: No Heart Rate >90: No Temp<36 C (96.8 F) or >38.3 C: No SBP <90 or MAP <65 mmHG: No New Acute Mental Status Change: No Is the patient on CPAP, BIPAP,: No Physician Orders Staffing Analyst (04/28/25 ) Type And Screen (04/28/25 19:10) Ct Ab Pel Wo Con-No Oral Or Iv (04/28/25 19:10) Ceftriaxone 1gm/50ml (Rocephin) (04/28/25 21:15) Vital Signs Date Time Temp Pulse Resp B/P (MAP) Pulse Ox O2 Delivery O2 Flow Rate FiO2 04/28/25 18:26 99.0 66 16 92/60 96 99.0 Laboratory Tests Test 04/28/25 19:40 Lactic Acid Level 0.8 mmol/L (0.4-2.0) White Blood Count 7.1 10^3/uL (4.4-10.8) Departure 1 Departure Time of Disposition: 20:32 Impression: Primary Impression: UTI (urinary tract infection) Additional Impression: Abnormal finding on CT scan Disposition: HOME / SELF CARE / HOMELESS Condition: Stable Additional Instructions: Additional instructions: Please read all instructions provided in this packet carefully. You MUST follow-up with your primary care/family doctor in 1 to 2 days. If you are unable to see your primary care/family doctor, please return to our emergency room for re-assessment and re-evaluation in 1 to 2 days. Return to the emergency room here in our facility or to the nearest ER [facility] if your symptoms change or worsen. CONSULTATIONS: you MUST Follow-up for consultation as soon as possible with: -urology and gastroenterology in 1-2 days. Please call for appointment. You MUST call the consultants office yourself to make an appointment. You may need to arrange that through your insurance and/or your primary/family doctor. If you are unable to see the customer service consultant in 1 to 2 days, you must return to our emergency room (or any other ER of your choice) for re-assessment and re- evaluation. Adequate fluid hydration. Although you have been discharged from the Emergency Department, this does not mean that you have a "clean bill of health". No definitive diagnosis for your symptoms has been made today. It is possible that you are in the process of developing a serious illness. This is why you must return to the ED without fail if any new or worsening symptoms develop. Below is a copy of your radiological report for follow up: [address] [address] Ph: [phone] DIAGNOSTIC IMAGING Diagnostic Imaging Report : [id number] Signed PATIENT: NELY MOTA ACCT: [id number] UNIT: [id number] : 1960 LOC: ER ROOM / BED: / AGE / SEX: 65 / M ADM STATUS: REG ER SERVICE 09 ORDERING PHYSICIAN: GONZALES GOODWIN DO PROCEDURE(s): ABPL - CT AB PEL WO CON-NO ORAL OR IV REASON: hematuria ORDER NUMBER(s): [id number], ACCESSION NUMBER(s): [id number] Exam: CT CT AB PEL WO CON-NO ORAL OR IV History: hematuria Comparison Study: None TECHNIQUE: Multidetector CT of the abdomen AND PELVIS without IV contrast. Axial, coronal and sagittal multiplanar reformats were obtained from the axial data set by the technologist. Radiation Dose Information: CT Dose: CTDI volume is 9.41 mGy. Dose-length product is 3.92 mGy*cm FINDINGS: Bibasilar atelectasis/scarring. Mild emphysematous changes of the lung bases. Heart size is within normal limits. Liver, spleen, pancreas and left adrenal gland are unremarkable. 2 cm right adrenal nodule measuring up to 1 Hounsfield units which may represent an adenoma. 1.4 cm left renal lower pole cyst. Mild right-sided pelviectasis. Otherwise subacute ureters unremarkable. Mild wall thickening of the urinary bladder which is most likely from inadequate distention. Prostate measures 3.5 x 4.5 x 3.2 cm Stomach is fluid-filled and mildly distended. Mild distention of the proximal duodenum. The remainder of the small bowel loops unremarkable. Appendix is unremarkable. Descending colon and Sigmoid diverticulosis without diverticulitis. Small to moderate amount of fecal material within the colon. No evidence of intraperitoneal free air or free fluid. No evidence of aortic aneurysm. Moderate atherosclerotic calcification of the aorta and bilateral iliacs. No significant lymphadenopathy. Tiny fat containing umbilical hernia. Minimal body wall edema. Multilevel mild loss of superior vertebral body height of the thoracic and lumbar spine of unknown chronicity. Old fracture deformity of the right iliac bone. Old fracture deformity of left posterior 12th and 11th ribs. IMPRESSION: Mild wall thickening of the urinary bladder which may be due to inadequate distention. Correlation with urinalysis is recommended to exclude cystitis. Descending colon and Sigmoid diverticulosis without diverticulitis. Fluid-filled mildly distended stomach and proximal duodenum. Additional findings as above. ATED BY: RAMILA SPAULDING DO DICTATED DATE/TIME: 04/28/252004 SIGNED BY: RAMILA SPAULDING DO SIGNED DATE/TIME: 04/28/252004 CC: e-Prescriptions Nitrofurantoin Monohydrate Mac (Macrobid) 100 Mg Cap 100 MG PO BID for 7 Days, #14 CAP Prov: GONZALES GOODWIN DO 04/28/25 Discharged With: Self GONZALES GOODWIN DO Apr 28, 2025 20:33
[2025-04-28 21:00] LABS: Urine Protein, UAD Negative (Negative)
[2025-04-28] MEDS ORDERED: NITR-87 PO (21:16)
[2025-04-29 00:12] VITALS: BP 127/69; PULSE 77; RESP 16; TEMP 97.8; O2SAT 99
[2025-04-29] MEDS: cefTRIAXone SOD 1,000 MG VL ONE (00:23)
[2025-04-29] MEDS: LIDOCAINE 1% HCL (LOCAL ANESTH.) INJ 20ML MDV ONE (00:23)
[2025-04-29] MEDS: cefTRIAXone SOD 1,000 MG VL IM ONE (00:23)
== END 2025-04-29 00:23 | disposition home or self-care (01) ==
LOC: ER 18:15 → EDBD 18:15 → ER 04-29 00:23
DX: N39.0 Urinary tract infection, site not specified (principal); R93.89 Abnormal findings on diagnostic imaging of other specified body structures; F17.210 Nicotine dependence, cigarettes, uncomplicated; F12.90 Cannabis use, unspecified, uncomplicated; I10 Essential (primary) hypertension; E78.5 Hyperlipidemia, unspecified; Z86.73 Personal history of transient ischemic attack (TIA), and cerebral infarction without residual deficits; Z90.89 Acquired absence of other organs
CPT/HCPCS: 36415; 74176; 80053; 81001; 83605; 85025; 86850; 86870; 86900; 86901; 86905; 96372; 99285; J0696; J2003

== ENCOUNTER 2025-04-29 02:15 | Inpatient (IN) | payer MEDICARE, MEDICAID ==
[~2025-04-29] VITALS: Ht 180.3 cm; Wt 60.8 kg
[~2025-04-29 02:15] MED LIST changes: +NITR-87 PO
[2025-04-29 03:33] LABS: Hematocrit 41.1 % (41.0-53.0); Hemoglobin 13.8 g/dL (13.5-17.5); Mean Corpuscular Hemoglobin 31.5 pg (28.0-32.0); Mean Corpuscular Volume 93.4 fL (80.0-100.0); Nucleated Red Blood Cells % 0.1 %
[2025-04-29 03:38] LABS: Alanine Aminotransferase 19 U/L (7-40); Albumin 4.1 g/dL (3.2-4.8); Alkaline Phosphatase 80 U/L (46-116); Anion Gap 10 (5-15); BUN/Creatinine Ratio 16.0 (10.0-20.0); Blood Urea Nitrogen 16 mg/dL (9-23); Calcium 9.8 mg/dL (8.7-10.4); Carbon Dioxide 25 mmol/L (20-31); Potassium 3.8 mmol/L (3.5-5.1); Sodium 143 mmol/L (136-145); Total Protein 7.1 g/dL (5.7-8.2)
[2025-04-29 03:43] LABS: Bilirubin, Total 0.2 mg/dL (0.2-1.0); Chloride 108 mmol/L (98-107); Glucose 132 mg/dL (74-106)
[2025-04-29 03:49] LABS: Lactic Acid w/Reflex 2.6 mmol/L (0.4-2.0)
--- NOTE | 2025-04-29 04:17 | DVH ---
EXAM: CT HEAD WITHOUT CONTRAST INDICATION: Fall injury. TECHNIQUE: CT of the head without intravenous contrast. Coronal and sagittal reformatted images are s ubmitted. Radiation Dose : 1. Head: CT Dose: CTDI volume is 51.58 mGy. Dose-length product is 1.71 mGy*cm The dose indicators for CT are the volume Computed Tomography (CT) Dose Index (CTDIvol) and the Dose Length Product (DLP), and are measured in units of mGy and mGy-cm, respectively. These indicators are not patient dose, but values generated from the CT scanner acquisition factors. The report includes radiation exposure data for exposures received during this examination. All CT scans at this medical facility are performed using dose modulation techniques as appropriate to a performed exam including the following: Automated exposure control was utilized; adjustment of the MA and/or KV according to patient size; and use of iterative reconstruction technique. COMPARISON: CT HEAD WITHOUT CONTRAST on DOS: 03/24/23 FINDINGS: There is no evidence of acute intracranial hemorrhage, mass effect or midline shift. There is a nodul ar mass in the left anterior cranial fossa measuring 2.1 by 2.0 cm. This appears to be slightly incr eased in size since the prior study. Previously this measured 1.8 x 1.5 cm. CSF attenuating collecti ons are again demonstrated in the bilateral frontal lobes which are similar to the prior study, adjac ent to craniotomy defects. There are periventricular and subcortical hypodensities, nonspecific, but likely reflecting sequelae of chronic microvascular ischemic changes. Ventriculomegaly is unchanged. The millard-white differentiation is intact. The mastoid air cells are clear. There is a deformity in the frontal bone. The surrounding soft tissues are unremarkable. IMPRESSION: 1. No acute intracranial abnormality. 2. 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 MRI of the brain without and with intravenous contrast is recommended for further evaluation 3. Stable bilateral frontal lobe encephalomalacia. 4. Ventriculomegaly, similar to prior CT from 2022.
[2025-04-29 04:24] LABS: INR 1.02 (0.9-1.15); Partial Thromboplastin Time 26.5 SEC (24.5-34.5); Prothrombin Time 10.8 sec (9.3-11.8)
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
[2025-04-29] MEDS ORDERED: ONDANSETRON HCL 4 MG/2 ML VIAL IV PRN (08:30)
[2025-04-29] MEDS ORDERED: DOCUSATE SOD 100 MG CAP PO PRN (08:30)
[2025-04-29] MEDS: SODIUM CHLORIDE 0.9% 1,000 ML IV ONE (10:36)
[2025-04-29] MEDS: LIDOCAINE 1% HCL (LOCAL ANESTH.) INJ 20ML MDV ID ONE (10:36)
[2025-04-29 12:58] VITALS: PULSE 72; RESP 24; O2SAT 99
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
[2025-04-29] MEDS ORDERED: LORazepam 2MG/ML-1ML VIAL IV ONE (14:00)
--- NOTE | 2025-04-29 14:37 | DVH ---
INDICATION: COPD TECHNIQUE: Frontal view of the chest. COMPARISON: XY CHEST PORTABLE on DOS: 03/24/23 FINDINGS: . The heart and mediastinal contours are grossly unremarkable. There is no evidence of pleural disea se. The lungs are clear. The bony structures of the chest are intact without fracture. IMPRESSION: 1. No evidence of acute disease.
[2025-04-29] MEDS: NICOTINE 21MG/24 HR TOPICAL PATCH TD ONE (14:50)
[2025-04-29 15:10] LABS: Urine Protein, UAD TRACE (Negative)
[2025-04-29 15:21] LABS: Amphetamine Screen, Urine Neg (NEGATIVE); Barbiturate Scree,Urine Neg (NEGATIVE); Benzodiazephine Screen, Urine Neg (NEGATIVE); Cannabinoid Screen, Urine Neg (NEGATIVE); Cocaine Screen, Urine Neg (NEGATIVE); Opiate Scree,Urine Neg (NEGATIVE); Phencyclidine Screen, Urine Neg (NEGATIVE)
[2025-04-29 19:37] VITALS: PULSE 74; RESP 12; O2SAT 96
[2025-04-29 21:30] VITALS: BP 132/62; PULSE 74; RESP 17; TEMP 98.4; O2SAT 98
[2025-04-29 22:30] VITALS: PULSE 74; RESP 18; O2SAT 98
[2025-04-30] VITALS (7 sets, daily range): BP systolic 104–135; BP diastolic 59–84; PULSE 63–83; RESP 17–19; TEMP 98.1–98.6; O2SAT 95–99
[2025-04-30 07:06] LABS: Hematocrit 37.7 % (41.0-53.0); Hemoglobin 13.0 g/dL (13.5-17.5); Mean Corpuscular Hemoglobin 31.8 pg (28.0-32.0); Mean Corpuscular Volume 92.1 fL (80.0-100.0); Nucleated Red Blood Cells % 0.1 %
[2025-04-30 07:30] LABS: Alanine Aminotransferase 20 U/L (7-40); Albumin 3.5 g/dL (3.2-4.8); Alkaline Phosphatase 70 U/L (46-116); Anion Gap 9 (5-15); BUN/Creatinine Ratio 12.2 (10.0-20.0); Bilirubin, Total 0.3 mg/dL (0.2-1.0); Blood Urea Nitrogen 10 mg/dL (9-23); Carbon Dioxide 24 mmol/L (20-31); Glucose 97 mg/dL (74-106); Potassium 4.0 mmol/L (3.5-5.1); Sodium 144 mmol/L (136-145); Total Protein 6.0 g/dL (5.7-8.2)
[2025-04-30 07:34] LABS: Calcium 8.7 mg/dL (8.7-10.4); Chloride 111 mmol/L (98-107)
[2025-04-30] MEDS: NICOTINE 21MG/24 HR TOPICAL PATCH TD SCH (09:40)
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
[2025-04-30] MEDS: HYDROcodone-ACET 5/325MG TAB PO PRN (23:00)
[2025-05-01] VITALS (8 sets, daily range): BP systolic 104–118; BP diastolic 59–73; PULSE 64–73; RESP 16–19; TEMP 98.1–99; O2SAT 97–98
[2025-05-01 04:19] LABS: Urine Protein, UAD Negative (Negative)
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
[2025-05-01] MEDS ORDERED: BACLOFEN 10 MG TAB PO ONE (21:15)
[2025-05-02 01:00] VITALS: BP 113/72; PULSE 78; RESP 17; TEMP 98.9; O2SAT 98
[2025-05-02 05:00] VITALS: BP 100/70; PULSE 70; RESP 17; TEMP 98.7; O2SAT 95
[2025-05-02 08:00] VITALS: RESP 18
[2025-05-02 09:00] VITALS: BP 113/73; PULSE 72; RESP 16; TEMP 98; O2SAT 95
[2025-05-02] MEDS ORDERED: CEFU500T43 PO (10:11)
--- NOTE | 2025-05-02 10:12 | DVHDS2 ---
Discharge Summary Date of Admission Apr 29, 2025 at 08:26 Date of Discharge: May 02, 2025 Labs/Diagnostic Data: Laboratory Results Test 04/30/25 22:50 04/30/25 06:35 04/29/25 14:59 04/29/25 04:42 Urine Color Colorless (Yellow) Urine Clarity Clear (Clear) Urine pH 8.0 (5.0-9.0) Urine Specific [place] 1.008 (1.001-1.035) Urine Protein Negative (Negative) Urine Ketones Negative (Negative) Urine Blood 2+ /uL (Negative) Urine Nitrite Negative (Negative) Urine Bilirubin Negative (Negative) Urine Urobilinogen Normal mg/dL (Negative) Urine Leukocyte Esterase 1+ /uL (Negative) Urine RBC 1 /hpf (0 - 3) Urine Microscopic WBC 4 /HPF (0-3) Urine Squamous Epithelial Cells Few /hpf (<5) Urine Bacteria None seen /hpf (None Seen) Urine Glucose Normal mg/dL (Normal) White Blood Count 6.5 10^3/uL (4.4-10.8) Red Blood Count 4.10 10^6/uL (4.5-5.90) Hemoglobin 13.0 g/dL (13.5-17.5) Hematocrit 37.7 % (41.0-53.0) Mean Corpuscular Volume 92.1 fL (80.0-100.0) Mean Corpuscular Hemoglobin 31.8 pg (28.0-32.0) Mean Corpuscular Hemoglobin Concent 34.5 g/dL (32.0-36.0) Red Cell Distribution Width 12.5 % (11.8-14.3) Platelet Count 199 10^3/uL (140-450) Mean Platelet Volume 8.5 fL (6.9-10.8) Neutrophils (%) (Auto) 70.6 % (37.0-80.0) Lymphocytes (%) (Auto) 17.3 % (10.0-50.0) Monocytes (%) (Auto) 10.0 % (0.0-12.0) Eosinophils (%) (Auto) 1.7 % (0.0-7.0) Basophils (%) (Auto) 0.4 % (0.0-2.0) Neutrophils # (Auto) 4.6 10 ^3/uL (1.6-8.6) Lymphocytes # (Auto) 1.1 10 ^3/uL (0.4-5.4) Monocytes # (Auto) 0.7 10 ^3/uL (0-1.3) Eosinophils # (Auto) 0.1 10 ^3/uL (0-0.8) Basophils # (Auto) 0 10 ^3/uL (0-0.2) Nucleated Red Blood Cells 0.1 % Sodium Level 144 mmol/L (136-145) Potassium Level 4.0 mmol/L (3.5-5.1) Chloride Level 111 mmol/L (98-107) Carbon Dioxide Level 24 mmol/L (20-31) Anion Gap 9 (5-15) Blood Urea Nitrogen 10 mg/dL (9-23) Creatinine 0.82 mg/dL (0.700-1.30) Glomerular Filtration Rate Calc 97 mL/min (>90) BUN/Creatinine Ratio 12.2 (10.0-20.0) Serum Glucose 97 mg/dL (74-106) Calcium Level 8.7 mg/dL (8.7-10.4) Total Bilirubin 0.3 mg/dL (0.2-1.0) Aspartate Amino Transferase (AST) 23 U/L (13-40) Alanine Aminotransferase (ALT) 20 U/L (7-40) Alkaline Phosphatase 70 U/L (46-116) Total Protein 6.0 g/dL (5.7-8.2) Albumin 3.5 g/dL (3.2-4.8) Urine Opiates Screen Neg (NEGATIVE) Urine Fentanyl Screen Neg (NEGATIVE) Urine Barbiturates Screen Neg (NEGATIVE) Urine Phencyclidine Screen Neg (NEGATIVE) Urine Amphetamines Screen Neg (NEGATIVE) Urine Benzodiazepines Screen Neg (NEGATIVE) Urine Cocaine Screen Neg (NEGATIVE) Urine Cannabinoids Screen Neg (NEGATIVE) Lactic Acid Level 1.3 mmol/L (0.4-2.0) Test 04/29/25 02:50 Prothrombin Time 10.8 sec (9.3-11.8) Prothrombin Time INR 1.02 (0.9-1.15) Activated Partial Thromboplast Time 26.5 SEC (24.5-34.5) Other Laboratory Tests 04/30/25 06:35 Brief Hx & Hospital Course: SEE DICTATED NOTE Condition at Discharge: Fair Final Diagnosis/Problems List UTI FALL Discharge Disposition: Residential Detention Discharge Instruct/Medications Diet: Regular Activity: No Restrictions, As Tolerated Follow Up/Referral: FU WITH PCP IN 1 WK Medications: RESUME HOME MEDS SCRIPT TO PHARMACY Scheduled Cefuroxime Axetil (Cefuroxime Axetil), 1 TAB PO BID Nitrofurantoin Monohydrate Mac (Macrobid), 100 MG PO BID Scheduled PRN Ibuprofen (Ibuprofen), 1 TAB PO TID PRN Discharge Statement: "Patient was advised to return to the ER or call 911 if any headaches, dizziness, shortness of breath, chest pain, abdominal pain, bleeding, fevers, or worsening of medical condition. Patient was counseled about treatment plan, medications, possible side effects, patientverbalized understanding. All questions were answered to the best of my ability. This discharge took greater then 30 minutes in planning, reviewing documentation, counseling the patient, and discussing with other team members." ASSESSMENT ASSESSMENT Assessment UTI FALL Date of Service: May 02, 2025 Billing Provider: MIKE GALLOWAY MD Common Visit Codes: 02484-CTA/OBS DISCH DAY >30min MIKE GALLOWAY MD May 02, 2025 10:12
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
[2025-05-02 12:14] VITALS: TEMP 36.7
[2025-05-02 13:00] VITALS: BP 107/75; PULSE 76; RESP 18; TEMP 98.1; O2SAT 96
[2025-05-02] MEDS: ACETAMINOPHEN 325 MG TAB PO PRN (15:05)
== END 2025-05-02 15:45 | disposition home health service (06) | DRG 871 ==
LOC: ER 02:15 → OVERFLOW 08:26 → CENTRAL 21:57
PROVIDERS: ADMIT Internal Medicine; ATTEND Internal Medicine
DX: A41.9 Sepsis, unspecified organism (principal); G93.41 Metabolic encephalopathy; N39.0 Urinary tract infection, site not specified; I10 Essential (primary) hypertension; J44.9 Chronic obstructive pulmonary disease, unspecified; S09.90XA Unspecified injury of head, initial encounter; W01.0XXA Fall on same level from slipping, tripping and stumbling without subsequent striking against object, initial encounter; S01.112A Laceration without foreign body of left eyelid and periocular area, initial encounter; Z91.81 History of falling; N40.0 Benign prostatic hyperplasia without lower urinary tract symptoms; H54.61 Unqualified visual loss, right eye, normal vision left eye; E78.5 Hyperlipidemia, unspecified; F17.210 Nicotine dependence, cigarettes, uncomplicated; Z86.73 Personal history of transient ischemic attack (TIA), and cerebral infarction without residual deficits; Y93.89 Activity, other specified; Y92.89 Other specified places as the place of occurrence of the external cause; Y99.8 Other external cause status
CPT/HCPCS: 36415; 70450; 71045; 74176; 80053; 80307; 81001; 83605; 85025; 85610; 85730; 86850; 86870; 86900; 86901; 87040; 87086; 96372; 97110; 97116; 97163; 97530; G0378; J0696; J2003